=== PATIENT | female | born 1945 | race Caucasian/White ===

== ENCOUNTER 2019-05-04 12:38 | Emergency (ER) | payer OTHER, MEDICAID ==
[~2019-05-04] VITALS: Ht 149.9 cm; Wt 70.3 kg
[2019-05-04 12:41] VITALS: BP_SYST 172
--- NOTE | 2019-05-04 12:45 | NUR ---
Patient to ER bed 02 to gown for evaluation. Side rails up.
--- NOTE | 2019-05-04 12:49 | NUR ---
Patient brought in by ambulance to the ED c/o lower back pain that started 2 weeks ago post mechanical fall from her bed. Denied any chest pain or shortness of breath. Denied fevers, chills, nausea, or vomiting. Patient is alert and oriented x4, respirations even and unlabored, speaking in full sentences, and ambulating using a wheelchair for the moment. VSS, pain level 7/10. Informed of approximate wait time. Instructed to notify ED staff for any changes in condition or worsening of symptoms. Patient's mom verbalized understanding.
--- NOTE | 2019-05-04 12:55 | NUR ---
ER Dr. Ibrahim at bedside examining patient.
--- NOTE | 2019-05-04 13:24 | NUR ---
Patient taken to Radiology via gurney, in stable condition.
[2019-05-04] MEDS ORDERED: BISA-79 PO (13:26)
[2019-05-04] MEDS ORDERED: LIP40 PO (13:26)
[2019-05-04] MEDS ORDERED: ONDA4TAB5 PO (13:26)
[2019-05-04] MEDS ORDERED: MECL12.584 PO (13:26)
[2019-05-04] MEDS ORDERED: INSU100V7 SUBCUT (13:26)
[2019-05-04] MEDS ORDERED: ALLO100T91 PO (13:26)
[2019-05-04] MEDS ORDERED: ACET325T53 PO (13:26)
[2019-05-04] MEDS ORDERED: CHOL100034 PO (13:26)
[2019-05-04] MEDS ORDERED: AMLO2.5T2 PO (13:26)
[2019-05-04] MEDS ORDERED: COLC0.6T67 PO (13:26)
[2019-05-04] MEDS ORDERED: fentaNYL CITRATE/PF 100 MCG/2 ML AMP IM ONE (13:30)
--- NOTE | 2019-05-04 16:38 | NUR ---
Patient given written and verbal discharge instructions and verbalizes understanding. ER MD discussed with patient the results and treatment provided. Patient in stable condition. ID arm band removed. Rx of Cipro given. Patient educated on pain management and to follow up with PMD. Pain Scale 0/10. Opportunity for questions provided and answered. Medication side effect fact sheet provided. Transported by ambulance.
[2019-05-04 16:39] VITALS: BP_SYST 132
== END 2019-05-04 16:39 | disposition home or self-care (01) ==
LOC: SED 12:38
DX: M54.5 Low back pain (principal); I10 Essential (primary) hypertension; Z79.899 Other long term (current) drug therapy
CPT/HCPCS: 72100; 72170; 73502; 96372; 99283; J3010